=== PATIENT | male | born 1960 | race Caucasian/White ===

== ENCOUNTER 2021-02-07 15:03 | Emergency (ER) | payer OTHER, SELFPAY ==
[2021-02-07 15:20] VITALS: BP 121/73; PULSE 82; RESP 20; TEMP 36.9; O2SAT 100
--- NOTE | 2021-02-07 15:52 | ED.SKABFB ---
HPI - Skin/Abscess/Foreign Bdy General Chief complaint: Skin/Abscess/Foreign Body Stated complaint: lump Source: patient Mode of arrival: ambulatory Limitations: no limitations History of Present Illness HPI narrative: Patient is a 60 year old male who presents with complaints of insect bite to neck. Patient reports fishing 2 days ago and waking up with bites to face and neck. He reports increased swelling and itching to neck x 1 day. He denies drainage. Reports taking Benadryl and using hydrocortisone cream with limited relief. He denies all other complaints at this time. MD complaint: insect bite/sting Related Data Allergies Allergy/AdvReac Type Severity Reaction Status Date / Time No Known Allergies Allergy Verified 02/07/21 15:25 Review of Systems Review of Systems: Narrative: CONSTITUTIONAL: Denies fever, chills, or sweats. EYES: Denies visual changes, redness, or discharge. ENT: Denies rhinorrhea, congestion, sore throat, or otalgia. CARDIOVASCULAR: Denies chest pain, palpitations, or edema. RESPIRATORY: Denies cough or dyspnea. GASTROINTESTINAL: Denies abdominal pain, nausea, vomiting, or diarrhea. GENITOURINARY: Denies dysuria or hematuria. SKIN: Insect bite to neck and forehead MUSCULOSKELETAL: Denies back pain, joint pain, or myalgia. NEUROLOGIC: Denies headache, numbness, dizziness, or weakness. PSYCHIATRIC: Denies anxiety or depression. [facility] Past Medical History Medical History (Updated 02/07/21 @ 15:56 by NAE Rowell) Diabetes HTN (hypertension) Surgical History Surgical History (Updated 02/07/21 @ 15:59 by NAE Rowell) H/O shoulder surgery Social History Social History (Updated 02/07/21 @ 15:59 by NAE Rowell) Smoking status: Never smoker Alcohol intake: current Alcohol use details: occasional Substance use: never Occupation/Education: occupation Comments At the time of signature, I have reviewed and agree with nursing past medical, surgical, social, and family history unless otherwise noted. Please see nursing chart for further information. There is no relevant family history pertinent to the presenting complaint. Exam Narrative: Exam Narrative: GENERAL: Well-appearing, well-nourished, and in no acute distress. HEAD: Normocephalic, atraumatic. EYES: EOMI. No redness or drainage. Conjunctiva are normal. ENT: Mucous membranes pink and moist. NECK: AROM. Supple. No lymphadenopathy. CHEST: No respiratory distress. Clear to auscultation. HEART: Regular rate and rhythm. EXTREMITIES: Normal range of motion. No edema. SKIN: Pruritic area of erythema and edema to neck. NEURO: No focal deficits. Alert and oriented x3. Gait steady. PSYCH: Normal affect. No signs of depression or anxiety. Course Vital Signs Vital signs: Vital Signs Temperature 36.9 C 02/07/21 15:20 Pulse Rate 82 02/07/21 15:20 Respiratory Rate 20 02/07/21 15:20 Blood Pressure 121/73 02/07/21 15:20 Pulse Oximetry 100 02/07/21 15:20 Temperature 36.9 C 02/07/21 15:20 Pulse Rate 82 02/07/21 15:20 Respiratory Rate 20 02/07/21 15:20 Blood Pressure 121/73 02/07/21 15:20 Pulse Oximetry 100 02/07/21 15:20 Reviewed MDM - Skin/Abscess/Foreign Bdy MDM Narrative Medical decision making narrative: Patient appears to have insect bite and surrounding cellulitis to neck. Discussed taking Benadryl as well as prednisone and antibiotic. Patient is aware of the need to follow-up with PCP in 3 to 5 days if symptoms persist. Patient is aware if he has increased swelling, difficulty swallowing or increased warmth, tenderness or drainage, he should be seen in the emergency department for further evaluation. Patient is stable for discharge home with outpatient follow-up as discussed. Differential Diagnosis Differential diagnosis: Likely abscess of skin or subcutaneous tissue, urticaria, cellulitis, insect bites, impetigo and contact dermatitis Critical Care Time
== END 2021-02-07 15:56 | disposition home or self-care (01) ==
PROVIDERS: Emergency Provider Nurse Practitioner; PCP Internal Medicine
DX: S10.96XA Insect bite of unspecified part of neck, initial encounter (principal); L03.221 Cellulitis of neck; W57.XXXA Bitten or stung by nonvenomous insect and other nonvenomous arthropods, initial encounter; E11.9 Type 2 diabetes mellitus without complications; I10 Essential (primary) hypertension
CPT/HCPCS: 99213; G0463